=== PATIENT | female | born 1955 | race African-American/Black ===

== ENCOUNTER → 2017-12-19 | Outpatient (CLI) | payer MEDICARE, MEDICAID ==
--- NOTE | 2017-12-19 10:35 | RADIOLOGY REPORT (SQ) ---
EXAM DESCRIPTION: HIP RIGHT AP/LATERAL COMPLETED DATE/TIME: 12/19/2017 9:13 am REASON FOR STUDY: PAIN IN R HIP (1 VIEW) M25.551 PAIN IN RIGHT HIP COMPARISON: None. NUMBER OF VIEWS: Two views. TECHNIQUE: AP pelvis and additional frog-leg view of the right hip. LIMITATIONS: None. FINDINGS: There is joint space narrowing and subchondral cyst formation in both hips, slightly worse on the right. SI joints are normal. IMPRESSION: Osteoarthritis. TECHNICAL DOCUMENTATION: JOB ID: [id number] [employer]- All Rights Reserved Reading location - IP/workstation name: [email or web address]
== END ==
LOC: RAD 08:49
PROVIDERS: ATTEND Internal Medicine Geriatric Medicine
DX: M25.551 Pain in right hip (principal)